=== PATIENT | female | born 1960 | race Caucasian/White ===

== ENCOUNTER → 2016-09-06 | Outpatient (CLI) | payer OTHER ==
--- NOTE | 2016-09-06 09:52 | RAD ---
Examination: 3 views of the right foot History: History history of contusion to the right great toe Comparison: None available Findings: The alignment of the tarsal bones, tarsometatarsal joints, metatarsophalangeal joints grossly appears unremarkable. There is nondisplaced transverse fracture of the base of the distal phalanx of the great toe. There is intra-articular extension of the fracture line involving the interphalangeal joint laterally. Mild degenerative changes identified in the first metatarsophalangeal joint. Mild soft tissue swelling identified in the distal portion of the first digit. Impression: 1. Nondisplaced transverse fracture of the base of the distal phalanx of the great toe. There is intra-articular extension of the fracture line involving the interphalangeal joint laterally.
== END | disposition home or self-care (01) ==
LOC: DXRADRC 09:13
PROVIDERS: ATTEND Nurse Practitioner Family
DX: S90.111D Contusion of right great toe without damage to nail, subsequent encounter (principal); X58.XXXD Exposure to other specified factors, subsequent encounter
CPT/HCPCS: 73630

== ENCOUNTER → 2016-12-17 | Outpatient (CLI) | payer OTHER ==
--- NOTE | 2016-12-17 17:09 | RAD ---
Right foot, 3 views, 12/17/2016: History: Great toe nonunion Comparison is made to a study from 09/06/2016. Again noted is a fracture of the proximal aspect of the distal phalanx of the great toe. The fracture is unchanged in position. Portions of the fracture line are still visible. No additional fracture or dislocation is identified. There are mild degenerative changes at the first MTP joint. IMPRESSION: Stable, incompletely healed fracture of the distal phalanx of the right great toe.
== END | disposition home or self-care (01) ==
LOC: DXRADRC 15:36
PROVIDERS: ATTEND Nurse Practitioner Family
DX: S92.421 Displaced fracture of distal phalanx of right great toe (principal); M19.071 Primary osteoarthritis, right ankle and foot; X58.XXXD Exposure to other specified factors, subsequent encounter
CPT/HCPCS: 73630

== ENCOUNTER → 2017-01-28 | Outpatient (CLI) | payer OTHER ==
--- NOTE | 2017-01-28 10:03 | RAD ---
Foot x-rays Indication: Great toe fracture follow-up Technique: 3 views of the right foot Comparison: Previous study from 12/17/2016 Findings: There is interval progression of healing of the transverse fracture of the proximal aspect of the distal phalanx of the great toe. Redemonstrated is an avulsion fracture at the lateral and proximal aspect of the distal phalanx of the great toe without evidence of callus formation. No new acute fractures. No soft tissue abnormality. Mild first MTP joint osteoarthritis. Impression: As above.
== END | disposition home or self-care (01) ==
LOC: DXRADRC 09:32
PROVIDERS: ATTEND Nurse Practitioner Family
DX: S92.421 Displaced fracture of distal phalanx of right great toe (principal); M19.071 Primary osteoarthritis, right ankle and foot; X58.XXXD Exposure to other specified factors, subsequent encounter
CPT/HCPCS: 73630